=== PATIENT | female | born 1935 | race African-American/Black ===

== ENCOUNTER 2016-08-15 23:58 | Emergency (ER) | payer MEDICARE, MEDICAID ==
[~2016-08-15] VITALS: Ht 162.6 cm; Wt 108.0 kg
[~2016-08-15 23:58] MED LIST: ACET-3161 PO; FAMO20TA8 PO; LISI1TAB13 PO; TRAM50TA3 PO; WARF3TAB27 PO
[2016-08-16 04:09] LABS: BASOPHILS % 0.6 % (0.0-2.0); EOSINOPHILS % 2.4 % (0.0-5.0); HEMOGLOBIN. 14.9 g/dL (12.0-16.0); LYMPHOCYTES % 14.3 % (20.0-50.0); MEAN CORPUSCULAR HEMOGLOBIN 27.4 pg (28.0-32.0); MEAN CORPUSCULAR HGB CONC 32.4 g/dL (31.0-37.0); MEAN CORPUSCULAR VOLUME 84.7 fL (81.0-99.0); MEAN PLATELET VOLUME 8.4 fl (7.4-10.4); MONOCYTES % 7.9 % (2.0-8.0); NEUTROPHILS % 74.8 % (40.0-76.0); PLATELET 217 x1000/uL (130-400); RED BLOOD CELL COUNT 5.43 mill/uL (4.2-5.4); RED CELL DISTRIBUTION WIDTH 16.2 % (11.6-14.6); WHITE BLOOD COUNT 7.7 x1000/uL (4.5-11.0)
[2016-08-16 04:14] LABS: INR 1.6; PROTHROMBIN TIME 16.7 sec
[2016-08-16 04:21] LABS: ALANINE AMINOTRANSFERASE 19 IU/L (13-61); ALBUMIN 3.2 g/dL (3.4-5.0); ANION GAP 13; CALCIUM 9.2 mg/dL (8.5-10.1); CARBON DIOXIDE 32 mEq/L (21-32); CHLORIDE 93 mEq/L (98-107); INDEX HEMOLYSI 1 (1-3); INDEX ICTERIC 1 (1-4); INDEX LIPEMIC 1 (1-3); UREA NITROGEN BLOOD 31 mg/dL (7-21); eGFR > 60 mL/min (>60)
[2016-08-16 04:46] VITALS: BP 160/76
== END 2016-08-16 05:31 | disposition home or self-care (01) ==
LOC: ER 08-16 01:36 → EDBD 08-16 01:36 → ER 08-16 05:31
DX: R04.0 Epistaxis (principal); I10 Essential (primary) hypertension; Z86.73 Personal history of transient ischemic attack (TIA), and cerebral infarction without residual deficits; Z90.49 Acquired absence of other specified parts of digestive tract; Z86.718 Personal history of other venous thrombosis and embolism; Z79.01 Long term (current) use of anticoagulants; Z88.0 Allergy status to penicillin
CPT/HCPCS: 36415; 80053; 85025; 85610; 99284

== ENCOUNTER 2022-08-19 17:30 | Inpatient (IN) | payer MEDICARE, MEDICAID ==
[~2022-08-19] VITALS: Ht 149.9 cm; Wt 106.1 kg
[~2022-08-19 17:30] MED LIST changes: -WARF3TAB27 PO; +WARF3TAB58 PO
[2022-08-19] MEDS ORDERED: PANTOPRAZOLE SODIUM 40 MG/VIAL IV STA (20:41)
[2022-08-19] MEDS ORDERED: SODIUM CHLORIDE 0.9% 1,000 ML IV ONE (20:45)
[2022-08-19 23:16] LABS: BASOPHILS % 0.6 % (0.0-2.0); EOSINOPHILS % 2.1 % (0.0-5.0); HEMATOCRIT. 23.2 % (36.0-48.0); HEMOGLOBIN. 7.4 g/dL (12.0-16.0); LYMPHOCYTES % 17.7 % (20.0-50.0); MEAN CORPUSCULAR HEMOGLOBIN 29.7 pg (28.0-32.0); MEAN CORPUSCULAR VOLUME 92.5 fL (81.0-99.0); MEAN PLATELET VOLUME 8.9 fl (7.4-10.4); MONOCYTES % 7.7 % (2.0-8.0); NEUTROPHILS % 71.9 % (40.0-76.0); PLATELET 261 x1000/uL (130-400); RED BLOOD CELL COUNT 2.51 mill/uL (4.2-5.4); RED CELL DISTRIBUTION WIDTH 14.6 % (11.6-14.6)
[2022-08-19] MEDS ORDERED: PANTOPRAZOLE 80 MG in SODIUM CHLORIDE 0.9% 100 ML IV STA (23:19)
[2022-08-19 23:25] LABS: CHLORIDE 109 mEq/L (98-107)
[2022-08-19 23:27] LABS: PARTIAL THROMBOPLASTIN TIME 30.4 sec (23.4-31.0); PROTHROMBIN TIME 10.3 sec (9.6-11.0)
[2022-08-20] VITALS (9 sets, daily range): BP systolic 125–142; BP diastolic 41–66
[2022-08-20] MEDS ORDERED: IOHEXOL-300 100 ML BOTTLE ONE (04:17)
[2022-08-20] MEDS ORDERED: DEXTROSE 50% WATER 50ML SYRINGE IV PRN (07:30)
[2022-08-20] MEDS: BLOOD SUGAR DIAGNOSTIC STRIP TEST SCH ×4 (07:40→21:34)
[2022-08-20] MEDS: INSULIN LISPRO 100 UNITS/ML SUBCUT SCH ×4 (08:10→21:00)
[2022-08-20 08:16] LABS: BASOPHILS % 0.6 % (0.0-2.0); EOSINOPHILS % 1.5 % (0.0-5.0); HEMATOCRIT. 22.1 % (36.0-48.0); HEMOGLOBIN. 7.1 g/dL (12.0-16.0); LYMPHOCYTES % 17.7 % (20.0-50.0); MEAN CORPUSCULAR HEMOGLOBIN 29.8 pg (28.0-32.0); MEAN CORPUSCULAR VOLUME 92.9 fL (81.0-99.0); MEAN PLATELET VOLUME 7.9 fl (7.4-10.4); MONOCYTES % 8.6 % (2.0-8.0); NEUTROPHILS % 71.6 % (40.0-76.0); PLATELET 240 x1000/uL (130-400); RED BLOOD CELL COUNT 2.38 mill/uL (4.2-5.4); RED CELL DISTRIBUTION WIDTH 15.3 % (11.6-14.6)
[2022-08-20 09:23] LABS: TOTAL IRON BINDING CAPACITY 277 ug/dL (250-450)
[2022-08-20] MEDS ORDERED: DICL75TA5 MT (09:45)
[2022-08-20] MEDS ORDERED: LISI20TA31 PO (09:46)
[2022-08-20] MEDS ORDERED: GABA-529 MT (09:46)
[2022-08-20] MEDS ORDERED: ERGO1250 (09:50)
[2022-08-20] MEDS ORDERED: FURO20TA4 MT (09:50)
[2022-08-20] MEDS: PANTOPRAZOLE SODIUM 40 MG/VIAL IV SCH (10:32)
[2022-08-20] MEDS: GABAPENTIN 100MG CAPSULE PO SCH ×3 (10:32→17:19)
[2022-08-20] MEDS: INSULIN GLARGINE 100 UNITS/ML SUBCUT SCH (10:34)
[2022-08-20] MEDS: LISINOPRIL 20MG TABLET PO SCH (10:35)
[2022-08-20 14:43] LABS: HEPATITIS B SURFACE ANTIGEN NEGATIVE
[2022-08-20 21:58] LABS: HEMATOCRIT 23.4 % (36.0-48.0); HEMOGLOBIN 7.7 g/dL (12.0-16.0)
[2022-08-21] VITALS: BP 130/61
[2022-08-21 04:00] VITALS: BP 160/62
[2022-08-21 07:00] LABS: PROTHROMBIN TIME 10.9 sec (9.6-11.0)
[2022-08-21] MEDS: BLOOD SUGAR DIAGNOSTIC STRIP TEST SCH ×4 (07:14→21:59)
[2022-08-21 07:15] LABS: BASOPHILS % 0.8 % (0.0-2.0); EOSINOPHILS % 1.5 % (0.0-5.0); HEMATOCRIT. 23.3 % (36.0-48.0); HEMOGLOBIN. 7.7 g/dL (12.0-16.0); LYMPHOCYTES % 11.5 % (20.0-50.0); MEAN CORPUSCULAR HEMOGLOBIN 30.1 pg (28.0-32.0); MEAN CORPUSCULAR VOLUME 90.8 fL (81.0-99.0); MEAN PLATELET VOLUME 8.8 fl (7.4-10.4); MONOCYTES % 8.4 % (2.0-8.0); NEUTROPHILS % 77.8 % (40.0-76.0); PLATELET 219 x1000/uL (130-400); RED BLOOD CELL COUNT 2.57 mill/uL (4.2-5.4); RED CELL DISTRIBUTION WIDTH 14.9 % (11.6-14.6)
[2022-08-21 07:35] LABS: CHLORIDE 111 mEq/L (98-107)
[2022-08-21 07:41] LABS: PHOSPHORUS 3.1 mg/dL (2.5-4.9)
[2022-08-21 07:53] VITALS: BP 127/50
[2022-08-21] MEDS: INSULIN LISPRO 100 UNITS/ML SUBCUT SCH ×4 (08:10→22:00)
[2022-08-21] MEDS: GABAPENTIN 100MG CAPSULE PO SCH ×3 (09:00→17:20)
[2022-08-21] MEDS: PANTOPRAZOLE SODIUM 40 MG/VIAL IV SCH (09:18)
[2022-08-21] MEDS: INSULIN GLARGINE 100 UNITS/ML SUBCUT SCH (09:20)
[2022-08-21] MEDS: IRON SUCROSE COMPLEX 100 MG/5 ML ML IV SCH (09:24)
[2022-08-21] MEDS ORDERED: SIMETHICONE 40 MG/0.6 ML 15ML ONE (10:27)
[2022-08-21] MEDS ORDERED: DEXAMETHASONE 4MG/ML 1ML VIAL ONE (10:29)
[2022-08-21] MEDS ORDERED: LIDOCAINE 2% 6ML GLYDO MM ONE (10:29)
[2022-08-21] MEDS ORDERED: ONDANSETRON HCL 4MG/2ML INJ ONE (10:29)
[2022-08-21] MEDS ORDERED: LIDOCAINE HCL 1% 10 MG/ML 10ML VIAL ONE (10:29)
[2022-08-21] MEDS ORDERED: PROPOFOL 200MG/20ML VIAL IV ONE (10:29)
[2022-08-21 12:08] VITALS: BP 134/52
[2022-08-21] MEDS: LISINOPRIL 20MG TABLET PO SCH (12:38)
[2022-08-21 15:30] VITALS: BP 124/48
[2022-08-21] MEDS: METOCLOPRAMIDE HCL 10MG/2ML VIAL IV SCH ×2 (17:20→21:56)
[2022-08-21] MEDS: BISACODYL 5MG TABLET PO SCH ×2 (17:20→22:04)
[2022-08-21] MEDS: SORBITOL 70% SOLN 30ML PO SCH ×2 (17:21→21:56)
[2022-08-21 20:00] VITALS: BP 108/43
[2022-08-22] VITALS: BP 112/46
[2022-08-22 04:00] VITALS: BP 103/41
[2022-08-22] MEDS: INSULIN LISPRO 100 UNITS/ML SUBCUT SCH ×4 (06:26→21:00)
[2022-08-22] MEDS: BLOOD SUGAR DIAGNOSTIC STRIP TEST SCH ×4 (06:26→21:05)
[2022-08-22 06:51] LABS: BASOPHILS % 0.6 % (0.0-2.0); EOSINOPHILS % 0.2 % (0.0-5.0); HEMATOCRIT. 23.5 % (36.0-48.0); HEMOGLOBIN. 7.4 g/dL (12.0-16.0); MEAN CORPUSCULAR HEMOGLOBIN 29.6 pg (28.0-32.0); MEAN CORPUSCULAR VOLUME 93.4 fL (81.0-99.0); MEAN PLATELET VOLUME 8.7 fl (7.4-10.4); MONOCYTES % 12.3 % (2.0-8.0); NEUTROPHILS % 72.9 % (40.0-76.0); PLATELET 204 x1000/uL (130-400); RED BLOOD CELL COUNT 2.51 mill/uL (4.2-5.4); RED CELL DISTRIBUTION WIDTH 15.3 % (11.6-14.6)
[2022-08-22 06:54] LABS: INR 1.1; PROTHROMBIN TIME 11.4 sec (9.6-11.0)
[2022-08-22 08:00] VITALS: BP 104/56
[2022-08-22] MEDS: GABAPENTIN 100MG CAPSULE PO SCH ×3 (09:00→16:22)
[2022-08-22] MEDS ORDERED: SODIUM CHLORIDE 0.45% 1,000 ML IV SCH (09:00)
[2022-08-22] MEDS: IRON SUCROSE COMPLEX 100 MG/5 ML ML IV SCH (09:20)
[2022-08-22] MEDS: PANTOPRAZOLE SODIUM 40 MG/VIAL IV SCH (09:20)
[2022-08-22 12:00] VITALS: BP 157/96
[2022-08-22] MEDS: BISACODYL 5MG TABLET PO SCH ×3 (12:09→21:04)
[2022-08-22] MEDS: METOCLOPRAMIDE HCL 10MG/2ML VIAL IV SCH ×3 (12:10→21:04)
[2022-08-22] MEDS: SORBITOL 70% SOLN 30ML PO SCH ×3 (13:03→21:05)
[2022-08-22 16:00] VITALS: BP 140/89
[2022-08-22 20:00] VITALS: BP 94/40
[2022-08-23] VITALS (8 sets, daily range): BP systolic 94–140; BP diastolic 24–65
[2022-08-23] MEDS: BISACODYL 5MG TABLET PO SCH (01:09)
[2022-08-23] MEDS: SORBITOL 70% SOLN 30ML PO SCH (01:09)
[2022-08-23] MEDS: METOCLOPRAMIDE HCL 10MG/2ML VIAL IV SCH (01:09)
[2022-08-23] MEDS ORDERED: DEXT 5%/0.9% NACL 1,000 ML IV SCH (02:00)
[2022-08-23 03:02] LABS: BASOPHILS % 0.5 % (0.0-2.0); EOSINOPHILS % 0.4 % (0.0-5.0); HEMOGLOBIN. 8.4 g/dL (12.0-16.0); LYMPHOCYTES % 10.2 % (20.0-50.0); MEAN CORPUSCULAR HEMOGLOBIN 29.4 pg (28.0-32.0); MEAN CORPUSCULAR VOLUME 94.5 fL (81.0-99.0); MEAN PLATELET VOLUME 8.4 fl (7.4-10.4); MONOCYTES % 9.1 % (2.0-8.0); NEUTROPHILS % 79.8 % (40.0-76.0); PLATELET 212 x1000/uL (130-400); RED BLOOD CELL COUNT 2.85 mill/uL (4.2-5.4); RED CELL DISTRIBUTION WIDTH 16.6 % (11.6-14.6)
[2022-08-23 03:05] LABS: INR 1.1; PROTHROMBIN TIME 11.6 sec (9.6-11.0)
[2022-08-23 03:11] LABS: PHOSPHORUS 5.2 mg/dL (2.5-4.9)
[2022-08-23] MEDS: INSULIN LISPRO 100 UNITS/ML SUBCUT SCH ×4 (06:49→20:34)
[2022-08-23] MEDS: BLOOD SUGAR DIAGNOSTIC STRIP TEST SCH ×4 (06:49→20:34)
[2022-08-23] MEDS: SODIUM CHLORIDE 0.9% 250 ML IV NR ×2 (06:59→08:45)
[2022-08-23] MEDS: IRON SUCROSE COMPLEX 100 MG/5 ML ML IV SCH (08:58)
[2022-08-23] MEDS: PANTOPRAZOLE SODIUM 40 MG/VIAL IV SCH (08:58)
[2022-08-23] MEDS: GABAPENTIN 100MG CAPSULE PO SCH ×3 (09:00→17:00)
[2022-08-23 10:58] LABS: CREATINE KINASE 32 IU/L (26-192)
[2022-08-23] MEDS ORDERED: SODIUM CHLORIDE 0.9% 250 ML IV ONE (11:15)
[2022-08-23] MEDS ORDERED: SODIUM CHLORIDE 0.9% 250 ML IV NR (11:15)
[2022-08-23] MEDS ORDERED: PROPOFOL 200MG/20ML VIAL IV ONE (11:50)
[2022-08-23] MEDS ORDERED: SIMETHICONE 40 MG/0.6 ML 15ML ONE (11:50)
[2022-08-23] MEDS ORDERED: LIDOCAINE HCL 1% 10 MG/ML 10ML VIAL ONE (11:50)
[2022-08-23] MEDS ORDERED: MIDAZOLAM HCL 2 MG/2 ML VIAL ONE (11:51)
[2022-08-23 12:57] LABS: CHLORIDE 115 mEq/L (98-107)
[2022-08-23 13:38] LABS: FERRITIN 5685 ng/mL (10-291)
[2022-08-23] MEDS: IPRATROPIUM BROMIDE (0.02%) 0.5MG/2.5ML NEB HHN SCH ×2 (13:49→20:41)
[2022-08-23] MEDS ORDERED: ALBUMIN HUMAN 12.5G/250ML (5%) IV PRN (14:15)
[2022-08-23] MEDS ORDERED: DOPAMINE 400MG/250ML PREMIX 250 ML IV SCH (14:30)
[2022-08-23 14:36] LABS: VITAMIN B12 SERUM 1060 pg/mL (211-911)
[2022-08-23 15:17] LABS: BG BASE EXCESS -7.7 mmol/L (-2.0-2.0); BG CARBOXYHEMOGLOBIN 0.9 % (0.5-1.5); BG DEOXYHEMOGLOBIN 1.5 % (0.0-5.0); BG HCO3 ACT 21.3 mmol/L (22.0-26.0); BG METHEMOGLOBIN 0.8 % (0.0-1.5); BG OXYGEN SATURATION 98.5 % (92.0-98.5); BG OXYHEMOGLOBIN 96.8 % (94.0-97.0); BG PCO2 63.3 mmHg (35.0-45.0); BG PH 7.144 (7.350-7.450); BG PO2 150.7 mmHg (75.0-100.0); BG SAMPLE SITE RIGHT RADIAL; BG VENT MODE NASAL CANNULA
[2022-08-23] MEDS ORDERED: DOPAMINE 400MG/250ML PREMIX 250 ML IV PRN (15:30)
[2022-08-23] MEDS ORDERED: SODIUM BICARBONATE 8.4% 1 MEQ/ML 50ML SYR IV NR (15:45)
[2022-08-23] MEDS: DEXT 5%/0.45% NACL 1000ML 1,000 ML IV SCH (16:07)
[2022-08-23 16:35] LABS: BASOPHILS % 0.2 % (0.0-2.0); EOSINOPHILS % 0.1 % (0.0-5.0); HEMOGLOBIN. 7.9 g/dL (12.0-16.0); LYMPHOCYTES % 9.7 % (20.0-50.0); MEAN CORPUSCULAR VOLUME 98.9 fL (81.0-99.0); MEAN PLATELET VOLUME 8.6 fl (7.4-10.4); MONOCYTES % 8.1 % (2.0-8.0); NEUTROPHILS % 81.9 % (40.0-76.0); PLATELET 158 x1000/uL (130-400); RED BLOOD CELL COUNT 2.73 mill/uL (4.2-5.4); RED CELL DISTRIBUTION WIDTH 16.9 % (11.6-14.6)
[2022-08-23 20:41] LABS: BG BASE EXCESS -2.6 mmol/L (-2.0-2.0); BG CARBOXYHEMOGLOBIN 0.8 % (0.5-1.5); BG DEOXYHEMOGLOBIN 3.3 % (0.0-5.0); BG FRACTION INSPIRED OXYGEN 30; BG HCO3 ACT 24.5 mmol/L (22.0-26.0); BG METHEMOGLOBIN 0.8 % (0.0-1.5); BG OXYGEN SATURATION 96.6 % (92.0-98.5); BG OXYHEMOGLOBIN 95.1 % (94.0-97.0); BG PCO2 55.3 mmHg (35.0-45.0); BG PH 7.265 (7.350-7.450); BG PO2 98.1 mmHg (75.0-100.0); BG SAMPLE SITE RIGHT RADIAL; BG TOTAL HEMOGLOBIN 8.8 g/dL (12.0-18.0); BG VENT MODE MASK - BIPAP
[2022-08-23] MEDS: ALBUTEROL (0.083%) 2.5MG/3ML NEB HHN SCH (20:41)
[2022-08-23 21:22] LABS: CLARITY URINE TURBID (CLEAR); COLOR URINE YELLOW (YELLOW); KETONES URINE NEGATIVE (NEGATIVE); LEUKOCYTE ESTERASE URINE 3+ (NEGATIVE); NITRITE URINE NEGATIVE (NEGATIVE); OCCULT BLOOD URINE 3+ (NEGATIVE); PROTEIN URINE 3+ (NEGATIVE); SPECIFIC GRAVITY URINE 1.015 (1.005-1.030); UROBILINOGEN URINE 0.2 E.U./dL (0.2-1.0)
[2022-08-24] VITALS (12 sets, daily range): BP systolic 102–146; BP diastolic 38–78
[2022-08-24] MEDS: ALBUTEROL (0.083%) 2.5MG/3ML NEB HHN SCH ×4 (03:18→20:53)
[2022-08-24] MEDS: IPRATROPIUM BROMIDE (0.02%) 0.5MG/2.5ML NEB HHN SCH ×4 (03:18→20:54)
[2022-08-24 04:36] LABS: BASOPHILS % 0.5 % (0.0-2.0); EOSINOPHILS % 1.7 % (0.0-5.0); HEMATOCRIT. 27.4 % (36.0-48.0); HEMOGLOBIN. 8.5 g/dL (12.0-16.0); LYMPHOCYTES % 7.9 % (20.0-50.0); MEAN CORPUSCULAR HEMOGLOBIN 29.2 pg (28.0-32.0); MEAN CORPUSCULAR VOLUME 93.6 fL (81.0-99.0); MEAN PLATELET VOLUME 8.6 fl (7.4-10.4); MONOCYTES % 8.8 % (2.0-8.0); NEUTROPHILS % 81.1 % (40.0-76.0); PLATELET 190 x1000/uL (130-400); RED BLOOD CELL COUNT 2.92 mill/uL (4.2-5.4); RED CELL DISTRIBUTION WIDTH 15.8 % (11.6-14.6)
[2022-08-24] MEDS: DEXT 5%/0.45% NACL 1000ML 1,000 ML IV SCH ×2 (04:38→19:07)
[2022-08-24] MEDS: BLOOD SUGAR DIAGNOSTIC STRIP TEST SCH ×4 (05:57→21:08)
[2022-08-24] MEDS: INSULIN LISPRO 100 UNITS/ML SUBCUT SCH ×4 (06:03→21:00)
[2022-08-24] MEDS: LEVOFLOXACIN 250MG PREMIX 50 ML IV SCH (06:20)
[2022-08-24] MEDS: GABAPENTIN 100MG CAPSULE PO SCH ×3 (08:35→18:33)
[2022-08-24] MEDS ORDERED: DOPAMINE 400MG/250ML PREMIX 250 ML IV SCH (11:00)
[2022-08-25] VITALS (12 sets, daily range): BP systolic 102–140; BP diastolic 41–67
[2022-08-25] MEDS: ALBUTEROL (0.083%) 2.5MG/3ML NEB HHN SCH ×4 (02:28→20:06)
[2022-08-25] MEDS: IPRATROPIUM BROMIDE (0.02%) 0.5MG/2.5ML NEB HHN SCH ×4 (02:29→20:06)
[2022-08-25] MEDS: INSULIN LISPRO 100 UNITS/ML SUBCUT SCH ×4 (06:21→21:00)
[2022-08-25] MEDS: LEVOFLOXACIN 250MG PREMIX 50 ML IV SCH (06:21)
[2022-08-25] MEDS: BLOOD SUGAR DIAGNOSTIC STRIP TEST SCH ×4 (06:30→21:43)
[2022-08-25 07:17] LABS: BASOPHILS % 0.4 % (0.0-2.0); EOSINOPHILS % 3.3 % (0.0-5.0); HEMATOCRIT. 24.2 % (36.0-48.0); HEMOGLOBIN. 7.8 g/dL (12.0-16.0); LYMPHOCYTES % 11.4 % (20.0-50.0); MEAN CORPUSCULAR HEMOGLOBIN 29.9 pg (28.0-32.0); MEAN PLATELET VOLUME 8.6 fl (7.4-10.4); NEUTROPHILS % 76.9 % (40.0-76.0); PLATELET 154 x1000/uL (130-400); RED CELL DISTRIBUTION WIDTH 15.8 % (11.6-14.6)
[2022-08-25 08:34] LABS: PHOSPHORUS 3.5 mg/dL (2.5-4.9)
[2022-08-25 08:37] LABS: BG BASE EXCESS -1.4 mmol/L (-2.0-2.0); BG CARBOXYHEMOGLOBIN 1.5 % (0.5-1.5); BG DEOXYHEMOGLOBIN 2.4 % (0.0-5.0); BG FRACTION INSPIRED OXYGEN 32; BG HCO3 ACT 25.8 mmol/L (22.0-26.0); BG METHEMOGLOBIN 0.3 % (0.0-1.5); BG OXYGEN SATURATION 97.6 % (92.0-98.5); BG OXYHEMOGLOBIN 95.8 % (94.0-97.0); BG PCO2 57.4 mmHg (35.0-45.0); BG PH 7.271 (7.350-7.450); BG PO2 111.3 mmHg (75.0-100.0); BG SAMPLE SITE RIGHT RADIAL; BG TOTAL HEMOGLOBIN 9.1 g/dL (12.0-18.0); BG VENT MODE NASAL CANNULA
[2022-08-25] MEDS: DEXT 5%/0.45% NACL 1000ML 1,000 ML IV SCH ×2 (10:00→21:43)
[2022-08-25] MEDS: GABAPENTIN 100MG CAPSULE PO SCH ×2 (10:02→18:43)
[2022-08-25] MEDS: EPOETIN ALFA-EPBX 4,000 UNIT/ML VIAL SUBCUT SCH (21:43)
[2022-08-26] VITALS (16 sets, daily range): BP systolic 129–153; BP diastolic 43–62
[2022-08-26] MEDS: ALBUTEROL (0.083%) 2.5MG/3ML NEB HHN SCH ×4 (01:53→21:36)
[2022-08-26] MEDS: IPRATROPIUM BROMIDE (0.02%) 0.5MG/2.5ML NEB HHN SCH ×4 (01:53→21:38)
[2022-08-26 05:56] LABS: BASOPHILS % 0.3 % (0.0-2.0); HEMATOCRIT. 21.7 % (36.0-48.0); HEMOGLOBIN. 7.2 g/dL (12.0-16.0); LYMPHOCYTES % 12.4 % (20.0-50.0); MEAN CORPUSCULAR HEMOGLOBIN 30.9 pg (28.0-32.0); MEAN CORPUSCULAR VOLUME 93.1 fL (81.0-99.0); MEAN PLATELET VOLUME 8.9 fl (7.4-10.4); MONOCYTES % 9.9 % (2.0-8.0); NEUTROPHILS % 74.4 % (40.0-76.0); PLATELET 123 x1000/uL (130-400); RED BLOOD CELL COUNT 2.33 mill/uL (4.2-5.4); RED CELL DISTRIBUTION WIDTH 15.1 % (11.6-14.6)
[2022-08-26] MEDS: INSULIN LISPRO 100 UNITS/ML SUBCUT SCH ×4 (06:31→21:00)
[2022-08-26] MEDS: BLOOD SUGAR DIAGNOSTIC STRIP TEST SCH ×4 (06:31→21:48)
[2022-08-26] MEDS: LEVOFLOXACIN 250MG PREMIX 50 ML IV SCH (06:50)
[2022-08-26] MEDS: GABAPENTIN 100MG CAPSULE PO SCH ×3 (09:25→17:58)
[2022-08-26] MEDS ORDERED: GENTAMICIN 120MG PREMIX 100 ML IV SCH (11:00)
[2022-08-26] MEDS ORDERED: LACTULOSE 20G/30ML UDC PO NR (11:45)
[2022-08-27] VITALS (12 sets, daily range): BP systolic 112–157; BP diastolic 47–71
[2022-08-27] MEDS: IPRATROPIUM BROMIDE (0.02%) 0.5MG/2.5ML NEB HHN SCH (02:10)
[2022-08-27] MEDS: ALBUTEROL (0.083%) 2.5MG/3ML NEB HHN SCH (02:11)
[2022-08-27 06:38] LABS: BASOPHILS % 0.3 % (0.0-2.0); EOSINOPHILS % 4.4 % (0.0-5.0); HEMATOCRIT. 27.8 % (36.0-48.0); HEMOGLOBIN. 9.2 g/dL (12.0-16.0); LYMPHOCYTES % 15.1 % (20.0-50.0); MEAN CORPUSCULAR HEMOGLOBIN 30.5 pg (28.0-32.0); MEAN CORPUSCULAR VOLUME 91.9 fL (81.0-99.0); MEAN PLATELET VOLUME 8.6 fl (7.4-10.4); MONOCYTES % 11.6 % (2.0-8.0); NEUTROPHILS % 68.6 % (40.0-76.0); PLATELET 129 x1000/uL (130-400); RED BLOOD CELL COUNT 3.03 mill/uL (4.2-5.4); RED CELL DISTRIBUTION WIDTH 15.4 % (11.6-14.6)
[2022-08-27 06:46] LABS: INR 1.2; PROTHROMBIN TIME 12.3 sec (9.6-11.0)
[2022-08-27] MEDS: INSULIN LISPRO 100 UNITS/ML SUBCUT SCH ×4 (07:00→21:00)
[2022-08-27] MEDS: BLOOD SUGAR DIAGNOSTIC STRIP TEST SCH ×4 (07:04→21:02)
[2022-08-27 07:18] LABS: GENTAMICIN RANDOM 2.1 ug/mL
[2022-08-27] MEDS: IPRATROPIUM/ALBUTEROL 0.5-3(2.5)MG/3ML NEB HHN SCH ×3 (08:54→20:06)
[2022-08-27] MEDS: GABAPENTIN 100MG CAPSULE PO SCH ×3 (09:17→17:17)
[2022-08-27] MEDS: GENTAMICIN 80MG PREMIX 100 ML IV SCH (15:56)
[2022-08-27] MEDS: EPOETIN ALFA-EPBX 4,000 UNIT/ML VIAL SUBCUT SCH (21:29)
[2022-08-28] VITALS: BP 148/54
[2022-08-28] MEDS: IPRATROPIUM/ALBUTEROL 0.5-3(2.5)MG/3ML NEB HHN SCH ×4 (02:20→22:07)
[2022-08-28 04:00] VITALS: BP 145/50
[2022-08-28] MEDS: BLOOD SUGAR DIAGNOSTIC STRIP TEST SCH ×4 (06:10→21:06)
[2022-08-28] MEDS: INSULIN LISPRO 100 UNITS/ML SUBCUT SCH ×4 (06:11→21:00)
[2022-08-28 08:00] VITALS: BP 146/54
[2022-08-28] MEDS: GABAPENTIN 100MG CAPSULE PO SCH ×3 (08:39→17:47)
[2022-08-28 12:00] VITALS: BP 142/52
[2022-08-28] MEDS: GENTAMICIN 80MG PREMIX 100 ML IV SCH (14:25)
[2022-08-28 16:00] VITALS: BP 133/47
[2022-08-28 20:00] VITALS: BP 149/66
[2022-08-29] VITALS (7 sets, daily range): BP systolic 120–167; BP diastolic 59–80
[2022-08-29] MEDS: IPRATROPIUM/ALBUTEROL 0.5-3(2.5)MG/3ML NEB HHN SCH ×3 (01:37→22:06)
[2022-08-29 06:20] LABS: BASOPHILS % 0.5 % (0.0-2.0); EOSINOPHILS % 4.2 % (0.0-5.0); HEMATOCRIT. 28.1 % (36.0-48.0); HEMOGLOBIN. 9.2 g/dL (12.0-16.0); LYMPHOCYTES % 14.4 % (20.0-50.0); MEAN CORPUSCULAR HEMOGLOBIN 30.1 pg (28.0-32.0); MEAN CORPUSCULAR VOLUME 91.6 fL (81.0-99.0); MONOCYTES % 9.8 % (2.0-8.0); NEUTROPHILS % 71.1 % (40.0-76.0); PLATELET 120 x1000/uL (130-400); RED BLOOD CELL COUNT 3.07 mill/uL (4.2-5.4); RED CELL DISTRIBUTION WIDTH 15.4 % (11.6-14.6)
[2022-08-29 06:49] LABS: CHLORIDE 109 mEq/L (98-107)
[2022-08-29 07:09] LABS: GENTAMICIN RANDOM 1.3 ug/mL
[2022-08-29] MEDS: BLOOD SUGAR DIAGNOSTIC STRIP TEST SCH ×4 (07:15→21:00)
[2022-08-29] MEDS: INSULIN LISPRO 100 UNITS/ML SUBCUT SCH ×4 (08:10→21:00)
[2022-08-29] MEDS: GABAPENTIN 100MG CAPSULE PO SCH ×3 (08:47→17:41)
[2022-08-29] MEDS: MAGNESIUM OXIDE 400MG TABLET PO SCH (13:12)
[2022-08-29] MEDS: GENTAMICIN 80MG PREMIX 100 ML IV SCH (15:20)
[2022-08-29] MEDS ORDERED: CLONIDINE 0.1MG TABLET PO PRN (17:15)
[2022-08-29] MEDS ORDERED: ACETAMINOPHEN 325MG TABLET PO PRN (17:15)
[2022-08-30] VITALS (7 sets, daily range): BP systolic 135–147; BP diastolic 48–76
[2022-08-30] MEDS: IPRATROPIUM/ALBUTEROL 0.5-3(2.5)MG/3ML NEB HHN SCH ×3 (00:32→20:01)
[2022-08-30] MEDS: BLOOD SUGAR DIAGNOSTIC STRIP TEST SCH ×4 (05:47→21:00)
[2022-08-30] MEDS: INSULIN LISPRO 100 UNITS/ML SUBCUT SCH ×4 (05:48→21:00)
[2022-08-30] MEDS: GABAPENTIN 100MG CAPSULE PO SCH ×3 (08:57→17:42)
[2022-08-30] MEDS: MAGNESIUM OXIDE 400MG TABLET PO SCH (08:59)
[2022-08-30] MEDS: GENTAMICIN 80MG PREMIX 100 ML IV SCH (13:14)
[2022-08-30] MEDS: EPOETIN ALFA-EPBX 4,000 UNIT/ML VIAL SUBCUT SCH (21:00)
[2022-08-31] VITALS: BP 129/42
[2022-08-31] MEDS: IPRATROPIUM/ALBUTEROL 0.5-3(2.5)MG/3ML NEB HHN SCH ×2 (01:00→09:17)
[2022-08-31 04:00] VITALS: BP 125/57
[2022-08-31 06:09] LABS: BASOPHILS % 0.6 % (0.0-2.0); EOSINOPHILS % 3.8 % (0.0-5.0); HEMATOCRIT. 28.6 % (36.0-48.0); HEMOGLOBIN. 9.3 g/dL (12.0-16.0); LYMPHOCYTES % 17.3 % (20.0-50.0); MEAN CORPUSCULAR HEMOGLOBIN 29.6 pg (28.0-32.0); MEAN CORPUSCULAR VOLUME 90.8 fL (81.0-99.0); MEAN PLATELET VOLUME 9.5 fl (7.4-10.4); MONOCYTES % 9.3 % (2.0-8.0); PLATELET 134 x1000/uL (130-400); RED BLOOD CELL COUNT 3.15 mill/uL (4.2-5.4); RED CELL DISTRIBUTION WIDTH 16.2 % (11.6-14.6)
[2022-08-31 08:00] VITALS: BP 143/54
[2022-08-31] MEDS: INSULIN LISPRO 100 UNITS/ML SUBCUT SCH (08:10)
[2022-08-31] MEDS: BLOOD SUGAR DIAGNOSTIC STRIP TEST SCH (08:33)
[2022-08-31] MEDS: GABAPENTIN 100MG CAPSULE PO SCH (08:34)
[2022-08-31] MEDS: MAGNESIUM OXIDE 400MG TABLET PO SCH (08:37)
[2022-08-31 12:00] VITALS: BP 109/46
[2022-08-31 12:04] VITALS: BP 132/52
== END 2022-08-31 14:33 | disposition home health service (06) | DRG 241 ==
LOC: ER 17:30 → MICUSO 23:33 → EDBEDREQ 23:45 → EDBEDREQTM 23:45 → 7WST 08-20 06:15 → MICUNO 08-23 13:31 → 7WST 08-27 22:10
PROVIDERS: ADMIT Internal Medicine; ATTEND Internal Medicine
PROC: 30233N1 Transfusion of Nonautologous Red Blood Cells into Peripheral Vein, Percutaneous Approach (ICD-10-PCS; principal; 2022-08-20)
PROC: 0DJ68ZZ Inspection of Stomach, Via Natural or Artificial Opening Endoscopic (ICD-10-PCS; 2022-08-21)
PROC: 5A09357 Assistance with Respiratory Ventilation, Less than 24 Consecutive Hours, Continuous Positive Airway Pressure (ICD-10-PCS; 2022-08-23)
PROC: 5A09357 Assistance with Respiratory Ventilation, Less than 24 Consecutive Hours, Continuous Positive Airway Pressure (ICD-10-PCS; 2022-08-25)
DX: K29.71 Gastritis, unspecified, with bleeding (principal); J96.01 Acute respiratory failure with hypoxia; G93.41 Metabolic encephalopathy; E44.1 Mild protein-calorie malnutrition; N17.9 Acute kidney failure, unspecified; E87.29 Other acidosis; D63.1 Anemia in chronic kidney disease; D69.6 Thrombocytopenia, unspecified; E66.2 Morbid (severe) obesity with alveolar hypoventilation; E88.09 Other disorders of plasma-protein metabolism, not elsewhere classified; E11.22 Type 2 diabetes mellitus with diabetic chronic kidney disease; D50.9 Iron deficiency anemia, unspecified; F03.90 Unspecified dementia, unspecified severity, without behavioral disturbance, psychotic disturbance, mood disturbance, and anxiety; J44.9 Chronic obstructive pulmonary disease, unspecified; Z20.822 Contact with and (suspected) exposure to COVID-19; N18.9 Chronic kidney disease, unspecified; I35.0 Nonrheumatic aortic (valve) stenosis; E78.5 Hyperlipidemia, unspecified; G25.81 Restless legs syndrome; I45.10 Unspecified right bundle-branch block; N39.0 Urinary tract infection, site not specified; I50.9 Heart failure, unspecified; G51.0 Bell's palsy; G89.29 Other chronic pain; M17.0 Bilateral primary osteoarthritis of knee; R26.9 Unspecified abnormalities of gait and mobility; K57.90 Diverticulosis of intestine, part unspecified, without perforation or abscess without bleeding; E83.42 Hypomagnesemia; K76.0 Fatty (change of) liver, not elsewhere classified; I13.0 Hypertensive heart and chronic kidney disease with heart failure and stage 1 through stage 4 chronic kidney disease, or unspecified chronic kidney disease; Z82.49 Family history of ischemic heart disease and other diseases of the circulatory system; Z86.711 Personal history of pulmonary embolism; Z99.81 Dependence on supplemental oxygen; Z79.899 Other long term (current) drug therapy; Z86.73 Personal history of transient ischemic attack (TIA), and cerebral infarction without residual deficits; Z90.49 Acquired absence of other specified parts of digestive tract; Z88.0 Allergy status to penicillin; Z79.01 Long term (current) use of anticoagulants; Z86.19 Personal history of other infectious and parasitic diseases; Z95.828 Presence of other vascular implants and grafts; Z86.718 Personal history of other venous thrombosis and embolism; Z68.42 Body mass index [BMI] 45.0-49.9, adult; Z91.81 History of falling; Z79.4 Long term (current) use of insulin
CPT/HCPCS: 36415; 36600; 71045; 74177; 76705; 76770; 80048; 80053; 80076; 80170; 81003; 82140; 82248; 82375; 82550; 82607; 82728; 82746; 82805; 82962; 83036; 83540; 83550; 83605; 83735; 83880; 84100; 84145; 85014; 85018; 85025; 85044; 86709; 86803; 86850; 86900; 86920; 87186; 87340; 87426; 93005; 93306; 93970; 94640; 94660; 97116; 97162; 97166; 97530; 99285; A6261; C9113; J0885; J1100; J1265; J1580; J1815; J1956; J2250; J2405; J2704; J2765; J3490; J7030; J7050; P9016; Q9967; A4315; A5200